=== PATIENT | female | born 1990 ===

== ENCOUNTER 2023-09-07 10:44 | Emergency (ER) | payer OTHER ==
[2023-09-07 10:45] VITALS: TEMP 97.7
[2023-09-07] MEDS ORDERED: NS 1,000 ML IV ONE (11:00)
[2023-09-07] MEDS ORDERED: Ondansetron 4 MG/2 ML VIAL IV ONE (11:00)
[2023-09-07 11:12] LABS: BASO # 0.1 K/mm3 (0.0-0.2); BASO % 0.5 % (0.0-2.0); EOS # 0.2 K/mm3 (0.0-0.7); EOS % 1.8 % (0.0-4.0); GRAN # 6.1 K/mm3 (1.4-6.5); GRAN % 64.8 % (42.2-75.2); HEMOGLOBIN 11.4 g/dl (12.5-16.0); LYMPH # 2.7 K/mm3 (1.2-3.4); LYMPH % 28.2 % (20.0-51.0); MEAN CELL VOLUME 81 fl (80.0-100.0); MEAN CORPUSCULAR HEMOGLOBIN 25 pg (27-31); MEAN CORPUSCULAR HGB CONC 31 g/dl (33.0-37.0); MEAN PLATELET VOLUME 10.5 fl (7.4-10.4); MONO # 0.4 K/mm3 (0.1-0.6); MONO % 4.5 % (1.7-9.3); PLATELET COUNT 358 K/mm3 (130-400); RED BLOOD COUNT 4.52 M/mm3 (4.10-5.30); REDCELL DISTRIBUTION WIDTH-CV 16.5 % (11.5-14.5)
[2023-09-07 11:13] LABS: HEMATOCRIT 36.8 % (37.0-47.0)
[2023-09-07 11:28] LABS: ALBUMIN 3.8 g/dL (3.5-5.0); BILIRUBIN,TOTAL 0.2 mg/dL (0.2-1.2); CALCIUM 9.3 mg/dL (8.4-10.2); CREATININE, serum 0.74 mg/dL (0.57-1.11); TOTAL PROTEIN 7.8 g/dl (6.2-8.1)
[2023-09-07] MEDS ORDERED: NS 100 ML IV SCH (12:21)
[2023-09-07] MEDS ORDERED: Iohexol 300 - 100 ML VIAL IV ONE (12:21)
[2023-09-07 12:26] LABS: URINE APPEARANCE CLEAR (CLEAR/HAZY); URINE BLOOD 2+ (NEGATIVE); URINE COLOR YELLOW (YELLOW); URINE GLUCOSE NEGATIVE (NEGATIVE); URINE KETONE NEGATIVE (NEGATIVE); URINE NITRATE NEGATIVE (NEGATIVE); URINE PROTEIN(semi-quant) NEGATIVE (NEGATIVE); URINE UROBILINOGEN 0.2 E.U/dL (0.2-1.0)
[2023-09-07 12:44] LABS: COLLECTION METHOD CLEAN CATCH
[2023-09-07] MEDS ORDERED: Mag/Al Hydrox/Simeth Susp 30 ML CUP PO ONE (13:00)
[2023-09-07 13:57] VITALS: BP 106/71; PULSE 90
== END 2023-09-07 13:57 | disposition home or self-care (01) ==
LOC: COL.ER 10:44 → EDBD 10:45 → COL.ER 13:57
PROVIDERS: Physician Assistant
DX: R55 Syncope and collapse (principal); R11.2 Nausea with vomiting, unspecified; F17.290 Nicotine dependence, other tobacco product, uncomplicated
CPT/HCPCS: J2405; J7030; Q9967